=== PATIENT | female | born 1950 ===

== ENCOUNTER 2024-12-22 07:00 | Day surgery (SDC) | payer OTHER ==
[2024-12-08 12:10] VITALS: BP 140/70
[~2024-12-22] VITALS: Ht 157.5 cm; Wt 66.2 kg
[~2024-12-22 07:00] MED LIST: METFORMIN HCL500 M3 PO; PANADOL EXTRA500 MG PO; SIMVASTATIN5 MG; ZESTRIL2.5 MG PO
[2024-12-22] MEDS ORDERED: GENTAMICIN SULFATE 40 MG/ML VIAL IR ONE (11:00)
[2024-12-22] MEDS ORDERED: LIDOCAINE HCL 1%/EPINEPHRINE 20ML VIAL IJ ONE (11:00)
[2024-12-22] MEDS ORDERED: CEFAZOLIN SODIUM 1,000 MG VIAL IV ONE (11:00)
[2024-12-22] MEDS ORDERED: CHLORHEXIDINE GLUCONATE 120 ML BOTTLE TOP ONE (11:00)
[2024-12-22] MEDS ORDERED: CEFAZOLIN SODIUM 1,000 MG VIAL IJ ONE (11:15)
[2024-12-22] MEDS ORDERED: TRAM1TAB98 PO (11:18)
[2024-12-22] MEDS ORDERED: MACROBID 100 M100 MG PO (11:18)
== END 2024-12-22 15:25 | disposition home or self-care (01) ==
LOC: CIR.AMB 07:00
PROVIDERS: ATTEND Obstetrics & Gynecology Gynecology
DX: N81.6 Rectocele (principal); N81.11 Cystocele, midline; N81.5 Vaginal enterocele; N81.83 Incompetence or weakening of rectovaginal tissue; N81.84 Pelvic muscle wasting